=== PATIENT | male | born 1975 | race African-American/Black ===

== ENCOUNTER 2019-11-15 10:57 | Inpatient (IN) | payer OTHER ==
[~2019-11-15] VITALS: Ht 160 cm; Wt 99.3 kg
[~2019-11-15 10:57] MED LIST: CARBAMAZEPINE200 MG PO; PEPCID20 MG PO; TEGRETOL200 MG PO
[2019-11-15 11:01] VITALS: BP 134/88
[2019-11-15 11:22] LABS: BASO % 0.6 % (0.0-1.0); EOS # 0.1 10*3/uL (0.0-0.4); EOS % 1.2 % (1.0-4.0); LYMPH # 1.5 10*3/uL (1.3-4.4); LYMPH % 30.6 % (27.0-41.0); MEAN CELL VOLUME 90.7 fl (80.0-94.0); MEAN CORPUSCULAR HGB 29.9 pg (27.0-31.0); MEAN CORPUSCULAR HGB CONC 32.9 g/dl (33.0-37.0); MEAN PLATELET VOLUME 9.3 fl (9.6-12.3); MONO # 0.3 10*3/uL (0.1-1.0); MONO % 6.3 % (3.0-9.0); NEUT % 61.1 % (47.0-73.0); PLATELET COUNT AUTOMATED 296 10*3/uL (130-400); RED BLOOD COUNT 4.52 10*6/uL (4.50-5.90); RED CELL DISTRI WIDTH 13.1 % (0-14.5); WHITE BLOOD COUNT 4.9 10*3/uL (4.8-10.8)
[2019-11-15 11:34] LABS: ACT PARTIAL THROMBO TIME 30.6 SECONDS (20.0-32.1)
--- NOTE | 2019-11-15 11:40 | NUR ---
PULSE HAS BEEN BETWEEN 98-107 SINCE ARRIVAL AND NOW SPIKES UP TO 130. MADE AWARE. STRIP PRINTED.
[2019-11-15 11:41] LABS: ALKALINE PHOSPHATASE 73 U/L (45-117); BUN 10 mg/dl (7-24); CHLORIDE 104 mmol/L (98-107); CREATININE 1.26 mg/dL (0.70-1.30); POTASSIUM 3.8 mmol/L (3.5-5.1); SGOT/AST 20 IU/L (3-35); SGPT/ALT 34 U/L (12-78); SODIUM 136 mmol/L (136-145); TOTAL PROTEIN 8.2 gm/dL (6.4-8.2)
[2019-11-15 11:42] LABS: TROPONIN I < 0.015 ng/ml (<0.045)
--- NOTE | 2019-11-15 12:46 | NUR ---
ROOM ASSIGNED 416/2. ROOM WILL BE READY FOR PT AT 1305.
--- NOTE | 2019-11-15 14:06 | NUR ---
Time: 1314 A 44 year old MALE admitted to under services of SERA MG DO. Pt. arrived via ambulatory from ER. Chief complaint: CHEST HEAVINESS. GERARDO GREENBERG
[2019-11-15] MEDS ORDERED: OMEPRAZOLE20 M2 PO (14:11)
[2019-11-15] MEDS ORDERED: CYCLOBENZAPRINE10 MG PO (14:12)
[2019-11-15] MEDS ORDERED: ATENOLOL25 MG PO (14:14)
[2019-11-15] MEDS ORDERED: AMLODIPINE BESYL5 MG PO (14:15)
[2019-11-15] MEDS ORDERED: TRAMADOL HCL50 MG PO (14:19)
[2019-11-15 20:00] VITALS: BP 121/80
[2019-11-16] VITALS: BP 106/63
--- NOTE | 2019-11-16 02:15 | NUR ---
Patient resting quietly with no c/o discomfort. Respirations easy and regular. Vital signs stable. No overt distress. LEEANNE LOVE
[2019-11-16 06:04] LABS: BASO % 0.4 % (0.0-1.0); EOS # 0.1 10*3/uL (0.0-0.4); EOS % 1.1 % (1.0-4.0); HEMATOCRIT 43.3 % (42.0-52.0); LYMPH # 1.8 10*3/uL (1.3-4.4); LYMPH % 32.9 % (27.0-41.0); MEAN CORPUSCULAR HGB 29.8 pg (27.0-31.0); MEAN CORPUSCULAR HGB CONC 32.8 g/dl (33.0-37.0); MEAN PLATELET VOLUME 9.9 fl (9.6-12.3); MONO # 0.5 10*3/uL (0.1-1.0); MONO % 8.8 % (3.0-9.0); NEUT # 3.1 10*3/uL (2.3-7.9); NEUT % 56.6 % (47.0-73.0); PLATELET COUNT AUTOMATED 329 10*3/uL (130-400); RED BLOOD COUNT 4.76 10*6/uL (4.50-5.90); RED CELL DISTRI WIDTH 13.2 % (0-14.5); WHITE BLOOD COUNT 5.5 10*3/uL (4.8-10.8)
[2019-11-16 06:15] LABS: BUN 13 mg/dl (7-24); CHLORIDE 103 mmol/L (98-107); CHOLESTEROL 204 mg/dL (<200); FREE T4 1.13 ng/dl (0.76-1.46); HDL CHOLESTEROL 34 mg/dl (40-60); LDL CHOLESTEROL 133 mg/dL (9-159); PHOSPHOROUS 3.6 mg/dL (2.5-4.9); POTASSIUM 3.9 mmol/L (3.5-5.1); SGOT/AST 12 IU/L (3-35); SGPT/ALT 34 U/L (12-78); SODIUM 138 mmol/L (136-145); TOTAL PROTEIN 8.1 gm/dL (6.4-8.2); TRIGLYCERIDES 185 mg/dl (<150); VLDL CHOLESTEROL 37 mg/dL (6-40)
[2019-11-16 06:21] LABS: ALKALINE PHOSPHATASE 72 U/L (45-117)
--- NOTE | 2019-11-16 07:30 | NUR ---
REPORT RECEIVED FROM DINING SERVICE SUPERVISOR NURSE. PT WATCHING TV AT THIS TIME. VOICES NO COMPLAINTS AT THIS TIME. CALL LIGHT IN REACH
[2019-11-16 10:12] VITALS: BP 140/94
--- NOTE | 2019-11-16 11:00 | NUR ---
CARDIAC REHAB INFORMED PT HAD BP MEDICATIONS THIS MORNING BEFORE STRESS TEST WAS ORDERED. STATED THIS WAS OK
--- NOTE | 2019-11-16 11:10 | NUR ---
PT OFF FLOOR FOR STRESS
--- NOTE | 2019-11-16 11:55 | NUR ---
INFORMED CONSENT SIGNED FOR STANDARD STRESS TEST WITH DR. GONZALEZ. RESTING EKG NSR, HR 114, BP 98/76 STANDING. SUPINE BP NOT OBTAINED D/T PT CONSTANT BACK PAIN HURTING WORSE WHEN HAVING TO LIE DOWN. DR. GONZALEZ AWARE OF ONLY ONE BP OBTAINED. COMPLETED 6:00 OF A STANDARD NORRIS PROTOCL COMPLETING 3:00 STAGE II, 2.5MPH/12% GRADE. PEAK HEART RATE OF 152 ACHEIVED WHICH IS 86% PREDICTED MAXIMUM AND A PEAK BP OF 144/80. NONDIAG[address]STIC ST CHANGES PRESENT WITH NO ARRHYTHMIAS. TEST TERMINATED D/T FATIGUE AND BACK PAIN. HAS A FAIR EXERCISE TOLERANCE. LAST RECOVERY HR 122, BP 104/78. THIS IS A NEGATIVE STRESS TEST.
--- NOTE | 2019-11-16 12:28 | NUR ---
Controls Design Engineer in to talk to patient. Patient states lives at HOME with . There are 10 steps in the home. Physician: BRY SCOTT SHOKAN Pharmacy: [facility] Home health services: NONE Patient's level of ADLs: INDEPENDENT Patient has working utilities: YES DME: NONE Follow-up physician's appointment after d/c: WILL BE MADE BY HOSPITALIST NURSE DIRECTOR ON DISCHARGE Does patient want to access PORTAL?: NO Discharge plan PT LIVES AT HOME WITH HIS AND IS INDEPENDENT IN HIS CARE. DENIES HE WILL HAVE NEEDS WHEN DISCHARGED. PLANS TO RETURN HOME WITH WHEN MEDICALLY STABLE. WILL CONTINUE TO FOLLOW. STATES HIS WILL TAKE HIM HOME.. HARLEY BROWN
--- NOTE | 2019-11-16 14:13 | NUR ---
NOON ASSESSMENT DONE AT 1330 WHEN PT CAME BACK FROM STRESS TEST.
[2019-11-16] MEDS ORDERED: METOPROLOL SUCC50 M1 PO (15:11)
--- NOTE | 2019-11-16 16:35 | NUR ---
Discharge instructions reviewed with patient/family. Patient receptive and verbalizes understanding. Follow-up care arranged. Written instructions given to patient/family. SOFIE FARRELL
== END 2019-11-16 16:35 | disposition home or self-care (01) | DRG 203 ==
LOC: ED 10:57 → EDHOLD 12:01 → 4E 12:17 → EDHOLD 12:17 → 4E 12:46
PROVIDERS: Emergency Medicine; Internal Medicine; ADMIT Internal Medicine
PROC: 4A02XM4 Measurement of Cardiac Total Activity, External Approach (ICD-10-PCS; principal; 2019-11-16)
DX: M94.0 Chondrocostal junction syndrome [Tietze] (principal); D64.9 Anemia, unspecified; R73.9 Hyperglycemia, unspecified; I10 Essential (primary) hypertension; K21.9 Gastro-esophageal reflux disease without esophagitis; G40.909 Epilepsy, unspecified, not intractable, without status epilepticus; M54.5 Low back pain; G89.29 Other chronic pain; R00.0 Tachycardia, unspecified; Z86.79 Personal history of other diseases of the circulatory system; Z83.3 Family history of diabetes mellitus; Z79.899 Other long term (current) drug therapy; Z82.49 Family history of ischemic heart disease and other diseases of the circulatory system; Z87.891 Personal history of nicotine dependence; Z88.1 Allergy status to other antibiotic agents

== ENCOUNTER 2020-01-19 20:26 | Emergency (ER) | payer OTHER ==
[~2020-01-19] VITALS: Ht 181.6 cm; Wt 111.1 kg
[~2020-01-19 20:26] MED LIST changes: +AMLODIPINE BESYL5 MG PO; +ATENOLOL25 MG PO; +CYCLOBENZAPRINE10 MG PO; +METOPROLOL SUCC50 M1 PO; +OMEPRAZOLE20 M2 PO; +TRAMADOL HCL50 MG PO
[2020-01-19] MEDS ORDERED: ROBAXIN-750750 MG PO (22:39)
[2020-01-19] MEDS ORDERED: NORCO 5-325 TA1 EACH PO (22:40)
== END 2020-01-19 22:50 | disposition home or self-care (01) ==
LOC: ED 20:26
DX: M54.16 Radiculopathy, lumbar region (principal); K21.9 Gastro-esophageal reflux disease without esophagitis; I10 Essential (primary) hypertension; Z88.8 Allergy status to other drugs, medicaments and biological substances; Z79.899 Other long term (current) drug therapy

== ENCOUNTER 2020-06-18 11:02 | Emergency (ER) | payer OTHER ==
[~2020-06-18 11:02] MED LIST changes: +NORCO 5-325 TA1 EACH PO; +ROBAXIN-750750 MG PO
[2020-06-18] MEDS ORDERED: ALEVE220 MG PO (11:22)
== END 2020-06-18 13:01 | disposition home or self-care (01) ==
LOC: ED 11:02
DX: H11.32 Conjunctival hemorrhage, left eye (principal); Z79.899 Other long term (current) drug therapy

== ENCOUNTER → 2020-07-08 | Outpatient (CLI) | payer OTHER ==
[~2020-07-08] MED LIST changes: +ALEVE220 MG PO
== END | disposition home or self-care (01) ==
LOC: COVID19 10:26
PROVIDERS: ATTEND Internal Medicine
DX: Z20.828 Contact with and (suspected) exposure to other viral communicable diseases (principal)

== ENCOUNTER → 2021-08-10 | Outpatient (CLI) | payer BC | END | disposition home or self-care (01) | LOC: COVID19 16:25 | PROVIDERS: ATTEND Internal Medicine | DX: U07.1 COVID-19 (principal) ==

== ENCOUNTER → 2021-08-21 | Outpatient (CLI) | payer BC | END | disposition home or self-care (01) | LOC: COVID19 15:03 | PROVIDERS: ATTEND Student in an Organized Health Care Education/Training Program | DX: Z20.822 Contact with and (suspected) exposure to COVID-19 (principal) ==

== ENCOUNTER → 2022-04-26 | Day surgery (SDC) | payer BC ==
[~2022-04-26] VITALS: Ht 167.6 cm; Wt 122.5 kg
[2022-04-26 09:01] VITALS: BP 175/92
[2022-04-26 09:43] VITALS: BP 109/57
[2022-04-26 09:58] VITALS: BP 110/56
[2022-04-26 10:13] VITALS: BP 109/67
== END | disposition home or self-care (01) ==
LOC: SDC 04-23 12:30
PROVIDERS: ATTEND Surgery
DX: Z12.11 Encounter for screening for malignant neoplasm of colon (principal); K63.5 Polyp of colon; M19.90 Unspecified osteoarthritis, unspecified site; I10 Essential (primary) hypertension; E11.9 Type 2 diabetes mellitus without complications; K21.9 Gastro-esophageal reflux disease without esophagitis; F41.9 Anxiety disorder, unspecified; Z87.891 Personal history of nicotine dependence; Z88.1 Allergy status to other antibiotic agents; Z79.899 Other long term (current) drug therapy

== ENCOUNTER → 2023-12-04 | Outpatient (CLI) | payer OTHER ==
[2023-12-04 10:58] LABS: BASO # 0.1 10*3/uL (0.0-0.1); BASO % 0.9 % (0.0-1.0); EOS # 0.1 10*3/uL (0.0-0.4); EOS % 2.1 % (1.0-4.0); HEMATOCRIT 41.1 % (42.0-52.0); LYMPH % 34.1 % (27.0-41.0); MEAN CELL VOLUME 90.9 fl (80.0-94.0); MEAN CORPUSCULAR HGB 30.3 pg (27.0-31.0); MEAN CORPUSCULAR HGB CONC 33.3 g/dl (33.0-37.0); MEAN PLATELET VOLUME 9.7 fl (9.6-12.3); MONO # 0.3 10*3/uL (0.1-1.0); MONO % 5.4 % (3.0-9.0); NEUT # 3.3 10*3/uL (2.3-7.9); NEUT % 57.3 % (47.0-73.0); PLATELET COUNT AUTOMATED 279 10*3/uL (130-400); RED BLOOD COUNT 4.52 10*6/uL (4.50-5.90); RED CELL DISTRI WIDTH 13.2 % (0-14.5); WHITE BLOOD COUNT 5.7 10*3/uL (4.8-10.8)
[2023-12-04 12:19] LABS: ALKALINE PHOSPHATASE 72 U/L (46-116); BUN 11 mg/dl (9-23); CHLORIDE 107 mmol/L (98-107); POTASSIUM 4.1 mmol/L (3.4-5.1); SGPT/ALT 42 U/L (5-49); TOTAL PROTEIN 7.4 gm/dL (6.0-8.0)
[2023-12-05 15:07] LABS: t-TRANSGLUTAMINASE (tTG) IGA <2 U/mL (0-3); t-TRANSGLUTAMINASE (tTG) IgG <2 U/mL (0-5)
== END | disposition home or self-care (01) ==
LOC: LAB 10:35
PROVIDERS: Student in an Organized Health Care Education/Training Program; ATTEND Family Medicine
DX: R10.9 Unspecified abdominal pain (principal)

== ENCOUNTER → 2024-03-04 | Outpatient (CLI) | payer OTHER | END | disposition home or self-care (01) | LOC: CARD 08:00 | PROVIDERS: ATTEND Family Medicine | DX: I47.10 Supraventricular tachycardia, unspecified (principal) ==

== ENCOUNTER → 2024-07-01 | Outpatient (CLI) | payer OTHER | END | disposition home or self-care (01) | LOC: CARD 08:30 | PROVIDERS: ATTEND Internal Medicine Cardiovascular Disease | DX: I34.0 Nonrheumatic mitral (valve) insufficiency (principal); I11.9 Hypertensive heart disease without heart failure; R00.1 Bradycardia, unspecified; G47.33 Obstructive sleep apnea (adult) (pediatric); E11.9 Type 2 diabetes mellitus without complications ==

== ENCOUNTER → 2024-10-15 | Outpatient (CLI) | payer OTHER ==
[2024-10-15 10:04] LABS: BASO % 0.5 % (0.0-1.0); EOS # 0.1 10*3/uL (0.0-0.4); HEMATOCRIT 42.6 % (42.0-52.0); MEAN CELL VOLUME 91.4 fl (80.0-94.0); MEAN CORPUSCULAR HGB 29.2 pg (27.0-31.0); MEAN CORPUSCULAR HGB CONC 31.9 g/dl (33.0-37.0); MEAN PLATELET VOLUME 9.2 fl (9.6-12.3); MONO # 0.5 10*3/uL (0.1-1.0); MONO % 5.9 % (3.0-9.0); NEUT % 64.6 % (47.0-73.0); PLATELET COUNT AUTOMATED 287 10*3/uL (130-400); RED BLOOD COUNT 4.66 10*6/uL (4.50-5.90); RED CELL DISTRI WIDTH 13.4 % (0-14.5); WHITE BLOOD COUNT 7.7 10*3/uL (4.8-10.8)
[2024-10-15 10:34] LABS: ALKALINE PHOSPHATASE 88 U/L (46-116); BUN 13 mg/dl (9-23); CHLORIDE 103 mmol/L (98-107); CHOLESTEROL 156 mg/dL (<200); FREE T4 1.26 ng/dl (0.89-1.76); LDL CHOLESTEROL 91 mg/dL (9-159); POTASSIUM 4.3 mmol/L (3.4-5.1); SGPT/ALT 40 U/L (5-49); TOTAL PROTEIN 7.9 gm/dL (6.0-8.0); TRIGLYCERIDES 90 mg/dl (<150)
== END | disposition home or self-care (01) ==
LOC: LAB 09:45
PROVIDERS: ATTEND Internal Medicine
DX: I10 Essential (primary) hypertension (principal); E78.5 Hyperlipidemia, unspecified; R12 Heartburn; E11.9 Type 2 diabetes mellitus without complications; R53.83 Other fatigue; E53.9 Vitamin B deficiency, unspecified; E55.9 Vitamin D deficiency, unspecified; R97.20 Elevated prostate specific antigen [PSA]

== ENCOUNTER → 2025-01-14 | Outpatient (CLI) | payer OTHER | END | disposition home or self-care (01) | LOC: LAB 13:56 | PROVIDERS: ATTEND Internal Medicine Gastroenterology | DX: I85.00 Esophageal varices without bleeding (principal) ==